=== PATIENT | male | born 1970 | race Caucasian/White ===

== ENCOUNTER → 2016-10-18 | Outpatient (CLI) | payer MEDICAID ==
[~2016-10-18] MED LIST: BUMETANIDE 1MG T1 MG PO; CARVEDILOL 1212.5 MG PO; CARVEDILOL 25MG25 MG PO; CARVEDILOL6.25 MG PO; DIAZEPAM5 MG PO; GABAPENTIN300 MG PO; GABAPENTIN800 MG PO; ISOSORBIDE DINI10 MG NG; LISINOPRIL10 MG PO; MUCUS RELIEF DM1 TA1 PO; NICODERM C21 MG/241 TD; OXAZEPAM15 MG PO; POTASSIUM CHLO20 ME2 PO; PRINIVIL5 MG NG; SPIRONOLACTONE25 MG PO; TRAMADOL 50MG T50 M1 PO; TRAMADOL50 M1 PO; ZESTRIL 2.5MG2.5 MG PO
[2016-10-18 13:31] LABS: URINE BILIRUBIN - DIPSTICK NEGATIVE (NEG); URINE BLOOD NEGATIVE (NEG)
[2016-10-18 14:42] LABS: BUN 27 mg/dL (7-18); GFR (ESTIMATED) 105 ML/MIN (>60)
[2016-10-18 15:15] LABS: LYMPH # 1.5 K/mm3 (0.7-4.5); LYMPH % 17.8 % (10-50)
[2016-10-18 15:17] LABS: HEMOGLOBIN 12.9 g/dL (14.1-18.0)
[2016-10-19 08:38] LABS: HBsAg Screen Negative (Negative); HIV Screen 4th Generation wRfx Non Reactive (Non Reactive); Hep A Ab, IgM Negative (Negative); Hep B Core Ab, IgM Negative (Negative); Hep C Virus Ab <0.1 (0.0-0.9)
== END ==
LOC: LAB 13:05
PROVIDERS: Internal Medicine
DX: F11.20 Opioid dependence, uncomplicated (principal); Z79.899 Other long term (current) drug therapy
CPT/HCPCS: G0432

== ENCOUNTER → 2017-06-26 | Outpatient (CLI) | payer MEDICAID ==
[~2017-06-26] MED LIST changes: +IBUPROFEN800 MG PO
--- NOTE | 2017-06-26 16:52 | RADIOLOGY REPORT PS360 ---
PROCEDURE: 2-D M-mode and color Doppler study INDICATIONS FOR THE TEST: Chest pain COPD Heart Murmur Tobacco Smoking Palpitations Fatigue Syncope Edema HypertensionXDiabetes Mellitus Rheumatic Fever SOBXDOEXObesityXHyperlipidemia Family History HD Additional History ETOH CM,CHF PATIENT INFORMATION HEIGHT: 70 WEIGHT:240 GENDER: Male B/P:140/90 2-D/M-MODE INTERPRETATION: 2-D MEASUREMENTS OBSERVED VALUES IN CMS Right Ventricular Dimension (RVDd) 3.4 Interventricular Septum (Thickness)(IVsd) 1.1 Left Ventricular Internal Dimensions(LVIDd) 5.0 Left Ventricular Posterior Wall (Thickness)(LVPWd) 1.0 Aortic Root 4.1 Aortic Cusp Separation 1.5 Left Atrial Dimensions (LAD) 4.2 2D 1. Left atrium is mildly enlarged, left ventricle is normal size, there is mild concentric left ventricular hypertrophy, visually estimated ejection fraction 55% with no obvious regional wall motion abnormality. 2. The right atrium and right ventricle are mildly enlarged with normal contractility. There is catheter noted in the right atrium and right ventricle which is likely a pacemaker lead. 3. The aortic valve is thickened and calcified leaflet continue to display mobility. 4. The mitral and tricuspid valve leaflets are minimally thickened. 5. The pulmonic valve is poorly visualized. 6. No significant pericardial effusion noted. DOPPLER INTERROGATION: Doppler interrogation of the aortic, mitral and tricuspid valvular presence of mild mitral and tricuspid regurgitation, tricuspid regurgitant jet velocity insufficient for calculation of the right ventricular systolic pressure, grade 1 diastolic dysfunction seen without tissue Doppler evidence of raised left atrial pressure. CONCLUSION: 1. Mildly enlarged left atrium, normal left ventricular size, mild concentric left ventricular hypertrophy, visually estimated ejection fraction 55% with no obvious regional wall motion abnormality, grade 1 diastolic dysfunction seen without tissue Doppler evidence of raised left atrial pressure. 2. THICKENED AND CALCIFIED AORTIC VALVE, MEAN GRADIENT ACROSS VALVE of 11 mmHg represents mild aortic stenosis, there is no aortic insufficiency. 3. Mild mitral and tricuspid regurgitation. 4. No significant pericardial effusion noted.
== END ==
LOC: RT 14:28
DX: I50.9 Heart failure, unspecified (principal); F34.1 Dysthymic disorder